=== PATIENT | female | born 1955 | race Caucasian/White ===

== ENCOUNTER 2019-04-02 19:41 | Inpatient (IN) ==
--- NOTE | 2019-04-02 20:21 | Emergency Department Note ---
Disposition Clinical Impression: Cellulitis of right breast, Abscess of right breast Disposition: Admitted As Inpatient Referrals: NONE,PCP [Primary Care Provider] - Forms: ED Satisfaction Letter, Work/School Release Time of Disposition: 22:58 General Adult HPI - General Chief complaint: ED General Medical Stated complaint: R Breast Swollen/Hot, HX Time Seen by Provider: 04/02/19 20:16 Source: patient Mode of arrival: private vehicle Limitations: no limitations Nursing Notes Reviewed: Yes Vital Signs Reviewed: Yes - History of Present Illness HPI Narrative: Patient is a 63-year-old female with a past medical history including asthma, migraine history, 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 The patient states she woke up today with right breast swelling, redness, pain. She states that started initially in the upper breast and has been progressively getting bigger. She complains of chills. She denies any nausea or vomiting, abdominal pain, chest pain, shortness of breath, cough, diarrhea, dysuria, headache. She is concerned she has an infection. Denies any nipple drainage. Pain Scale: 3 - Related Data Home Medications Medication Instructions Recorded Confirmed Cetirizine HCl [Zyrtec] 5 mg PO DAILY 06/21/18 04/02/19 Cyclobenzaprine HCl 10 mg PO TID PRN 06/21/18 04/02/19 EPINEPHrine [Epipen] 1 pack SQ PRN PRN 06/21/18 04/02/19 Fluticasone Propionate Nasal 50 mcg NS BID 06/21/18 04/02/19 [Flonase] hydroCHLOROthiazide 25 mg PO DAILY 06/21/18 04/02/19 [Hydrochlorothiazide] Montelukast [Singulair] 10 mg PO HS 11/04/18 04/02/19 SUMAtriptan Succinate [Imitrex] 6 mg SQ PRN PRN 11/04/18 04/02/19 SUMAtriptan Succinate [Imitrex] 100 mg PO PRN PRN 11/04/18 04/02/19 Fluticasone/Vilanterol [Breo 1 puff PO DAILY 11/22/18 04/02/19 Ellipta 100-25 Mcg INH] Multivitamin [Daily Multiple 1 tab PO DAILY 11/22/18 04/02/19 Vitamin] Calcium/D3/Argnin/Inos/Silicon 1 each PO DAILY 12/20/18 04/02/19 [Bone Density Calcium + D Cplt] Previous Rx's Medication Instructions Recorded Anastrozole [Arimidex] 1 mg PO DAILY #30 tablet 01/27/19 Calcium Carbonate/Vitamin D3 1 each PO DAILY #30 tablet 01/27/19 [Calcium 1,000 + D3 Caplet] Allergies Allergy/AdvReac Type Severity Reaction Status Date / Time azithromycin AdvReac Swelling Verified 04/02/19 19:47 of Lip/Tongue/Throat bacitracin AdvReac Itching Verified 04/02/19 19:47 ciprofloxacin [From Cipro] AdvReac Swelling Verified 04/02/19 19:47 of Lip/Tongue/Throat levofloxacin [From Levaquin] AdvReac Swelling Verified 04/02/19 19:47 of Lip/Tongue/Throat oxytetracycline AdvReac Swelling Verified 04/02/19 19:47 [From Terramycin] of Lip/Tongue/Throat Penicillins AdvReac Swelling Verified 04/02/19 19:47 of Lip/Tongue/Throat All systems ED: reviewed and negative except as stated. Review of Systems: As Per HPI Constitutional: Reports: chills. Denies: fever Cardiovascular: Denies: chest pain, palpitations Respiratory: Denies: cough, dyspnea Gastrointestinal: Denies: abdominal pain, nausea, vomiting Genitourinary: Denies: dysuria Neurological: Denies: headache Past Medical History - Past Medical History Attestation: Yes The following information was validated with the patient. Source: patient Medical history: Reports: asthma, GERD, migraine, other Surgical history: Reports: hysterectomy Psychiatric history: Reports: no psych history - Social History Smoking Status: Never smoker Smokeless Tobacco Status: No Alcohol use: Reports: none Drug use: Reports: none Physical Exam - General Limitations: no limitations General appearance: alert, in no apparent distress - Head Head exam: atraumatic, normocephalic - Eye Eye exam: Present: normal appearance, EOMI - ENT ENT exam: normal exam, normal oropharynx - Neck Neck exam: Present: normal inspection, trachea midline - Chest Chest inspection: Present: symmetric chest wall rise, other (Between 1 and 2:00 of the right wrist, there is a tender and indurated area measuring approximately 2" x 1" with overlying erythema that is blanching, skin is hot to touch) - Respiratory Respiratory exam: Present: normal lung sounds bilaterally. Absent: respiratory distress, wheezes - Cardiovascular Cardiovascular exam: Present: regular rate, normal rhythm, normal heart sounds - Abdominal Exam Abdominal exam: Present: soft, Non-Tender. Absent: distention - Extremities Exam Extremities exam: Present: normal inspection, normal capillary refill. Absent: calf tenderness - Neurological Exam Neurological exam: Present: alert, oriented X3 - Skin Skin exam: Absent: diaphoresis, pallor Course Vital Signs Temperature 99.8 F H 04/02/19 19:42 Pulse Rate 99 04/02/19 19:42 Respiratory Rate 20 04/02/19 19:42 Blood Pressure 165/84 04/02/19 19:42 O2 Sat by Pulse Oximetry 97 04/02/19 19:42 Temperature 100.1 F H 04/02/19 22:13 Pulse Rate 102 04/02/19 22:13 Respiratory Rate 20 04/02/19 22:13 Blood Pressure 161/89 04/02/19 22:13 O2 Sat by Pulse Oximetry 100 04/02/19 22:13 Oxygen Delivery Oxygen Delivery Room Air Medical Decision Making - [facility] Narrative Medical decision making narrative: Patient was history of breast cancer, completed radiation therapy, has had a lumpectomy and lymph node dissection in December. There is concern of induration overlying erythema with possible cellulitis. We will obtain a CT chest with IV contrast to evaluate for other soft tissue infection and underlying abscess. We will obtain CBC, BMP, lactate and blood cultures. 21:45 Labs reviewed. Normal WBC and lactate. 22:25 CT results reviewed. Right breast 2.8x3.7x3.2 cm collection with adjacent inflammatory changes concerning for abscess, as well as postoperative hematoma seroma that is considered. Vancomycin and cefepime ordered. General surgery has been paged. Patient did have her operation here by Dr. Diaz. 22:[address] Suazo, surgery, who will evaluate the patient in the morning. May be more likely a seroma given her history of radiation. Hospitalist paged for admission. 22:55 Dr. Mcgarry, hospitalist, accepts admission - Medical Records Medical records reviewed: Yes I reviewed the patient's medical records. - Lab Data Lab results reviewed: Yes I reviewed the patient's lab results. Result diagrams: 04/02/19 20:55 04/02/19 20:55 Lab Results 04/02/19 04/02/19 04/02/19 Range/Units 20:55 20:55 20:55 WBC 8.6 (4.3-11.1) K/mcL RBC 4.43 (3.82-4.97) M/mcL Hgb 13.5 (11.5-15.4) g/dL Hct 40.0 (35.3-44.9) % MCV 90.3 (83.0-100.0) fL MCH 30.5 (28.0-33.3) pg MCHC 33.8 (31.6-35.5) g/dL RDW 12.7 (11.5-14.5) % Plt Count 303 (140-400) K/mcL MPV 8.6 L (9.4-12.4) fL Immature Gran % 0.2 (0-4) % Seg Neutrophils % 73.9 % Lymphocytes % 15.8 % Monocytes % 8.4 % Eosinophils % 1.3 % Basophils % 0.4 % Neutrophils # 6.3 (1.6-8.9) K/mcL Lymphocytes # 1.4 (0.6-4.6) K/mcL Monocytes # 0.7 (0.0-1.3) K/mcL Eosinophils # 0.1 (0.0-0.6) K/mcL Basophils # 0.0 (0.0-0.2) K/mcL Sodium 137 (136-145) mEq/L Potassium 3.6 (3.5-5.1) mEq/L Chloride 100 (98-107) mEq/L Carbon Dioxide 28 (23-29) mEq/L BUN 17 (8-23) mg/dL Creatinine 0.77 (0.60-1.20) mg/dL Est GFR ( Amer) > 60 (> 60) Est GFR (Non-Af Amer) > 60 (> 60) BUN/Creatinine Ratio 22 (6-26) Glucose 145 H (70-105) mg/dL Calculated Osmolality 288 (280-300) Lactic Acid 1.0 (0.5-2.2) mmol/L Calcium 9.4 (8.6-10.3) mg/dL - Radiology Data Radiology results reviewed: Yes I reviewed the patient's radiology results. Chest CT 04/02/19 20:39 IMPRESSION: Right breast 2.8 x 3.7 x 3.2 cm low-density collection with enhancing rim in adjacent inflammatory changes concerning for abscess. Postoperative hematoma/seroma is considered less likely given the inflammatory changes. Fatty infiltration of the liver. D/ / Kathi De La Garza Cha, MD / Kathi De La Garza Cha, MD Interpreting Provider: Kathi De La Garza Cha, MD
[2019-04-02] MEDS ORDERED: Isovue-370 500 ML BOTTLE IVP ONE (20:39)
--- NOTE | 2019-04-02 20:52 | Emergency Department Note ---
Disposition Clinical Impression: Cellulitis of right breast, Abscess of right breast Disposition: Admitted As Inpatient Time of Disposition: 22:58 General Adult HPI - General Chief complaint: ED General Medical Stated complaint: R Breast Swollen/Hot, HX Time Seen by Provider: 04/02/19 20:16 Source: patient Mode of arrival: private vehicle Limitations: no limitations - History of Present Illness Pain Scale: 3 - Related Data Home Medications Medication Instructions Recorded Confirmed Cetirizine HCl [Zyrtec] 5 mg PO DAILY 06/21/18 04/02/19 Cyclobenzaprine HCl 10 mg PO TID PRN 06/21/18 04/02/19 EPINEPHrine [Epipen] 1 pack SQ PRN PRN 06/21/18 04/02/19 Fluticasone Propionate Nasal 50 mcg NS BID 06/21/18 04/02/19 [Flonase] hydroCHLOROthiazide 25 mg PO DAILY 06/21/18 04/02/19 [Hydrochlorothiazide] Montelukast [Singulair] 10 mg PO HS 11/04/18 04/02/19 SUMAtriptan Succinate [Imitrex] 6 mg SQ PRN PRN 11/04/18 04/02/19 SUMAtriptan Succinate [Imitrex] 100 mg PO PRN PRN 11/04/18 04/02/19 Fluticasone/Vilanterol [Breo 1 puff PO DAILY 11/22/18 04/02/19 Ellipta 100-25 Mcg INH] Multivitamin [Daily Multiple 1 tab PO DAILY 11/22/18 04/02/19 Vitamin] Calcium/D3/Argnin/Inos/Silicon 1 each PO DAILY 12/20/18 04/02/19 [Bone Density Calcium + D Cplt] Previous Rx's Medication Instructions Recorded Anastrozole [Arimidex] 1 mg PO DAILY #30 tablet 01/27/19 Calcium Carbonate/Vitamin D3 1 each PO DAILY #30 tablet 01/27/19 [Calcium 1,000 + D3 Caplet] Allergies Allergy/AdvReac Type Severity Reaction Status Date / Time azithromycin AdvReac Swelling Verified 04/02/19 19:47 of Lip/Tongue/Throat bacitracin AdvReac Itching Verified 04/02/19 19:47 ciprofloxacin [From Cipro] AdvReac Swelling Verified 04/02/19 19:47 of Lip/Tongue/Throat levofloxacin [From Levaquin] AdvReac Swelling Verified 04/02/19 19:47 of Lip/Tongue/Throat oxytetracycline AdvReac Swelling Verified 04/02/19 19:47 [From Terramycin] of Lip/Tongue/Throat Penicillins AdvReac Swelling Verified 04/02/19 19:47 of Lip/Tongue/Throat Past Medical History - Past Medical History Medical history: Reports: asthma, GERD, migraine, other Surgical history: Reports: hysterectomy Psychiatric history: Reports: no psych history - Social History Smoking Status: Never smoker Smokeless Tobacco Status: No Alcohol use: Reports: none Drug use: Reports: none Physical Exam - General Limitations: no limitations General appearance: alert Course Vital Signs Temperature 99.8 F H 04/02/19 19:42 Pulse Rate 99 04/02/19 19:42 Respiratory Rate 20 04/02/19 19:42 Blood Pressure 165/84 04/02/19 19:42 O2 Sat by Pulse Oximetry 97 04/02/19 19:42 Temperature 98.8 F 04/03/19 12:23 Pulse Rate 87 04/03/19 12:23 Respiratory Rate 20 04/03/19 12:23 Blood Pressure 156/84 04/03/19 12:23 O2 Sat by Pulse Oximetry 95 04/03/19 12:23 Oxygen Delivery Oxygen Delivery Room Air Medical Decision Making - Lab Data Result diagrams: 04/02/19 20:55 04/03/19 03:12 Lab Results 04/02/19 04/02/19 04/02/19 Range/Units 20:55 20:55 20:55 WBC 8.6 (4.3-11.1) K/mcL RBC 4.43 (3.82-4.97) M/mcL Hgb 13.5 (11.5-15.4) g/dL Hct 40.0 (35.3-44.9) % MCV 90.3 (83.0-100.0) fL MCH 30.5 (28.0-33.3) pg MCHC 33.8 (31.6-35.5) g/dL RDW 12.7 (11.5-14.5) % Plt Count 303 (140-400) K/mcL MPV 8.6 L (9.4-12.4) fL Immature Gran % 0.2 (0-4) % Seg Neutrophils % 73.9 % Lymphocytes % 15.8 % Monocytes % 8.4 % Eosinophils % 1.3 % Basophils % 0.4 % Neutrophils # 6.3 (1.6-8.9) K/mcL Lymphocytes # 1.4 (0.6-4.6) K/mcL Monocytes # 0.7 (0.0-1.3) K/mcL Eosinophils # 0.1 (0.0-0.6) K/mcL Basophils # 0.0 (0.0-0.2) K/mcL Sodium 137 (136-145) mEq/L Potassium 3.6 (3.5-5.1) mEq/L Chloride 100 (98-107) mEq/L Carbon Dioxide 28 (23-29) mEq/L BUN 17 (8-23) mg/dL Creatinine 0.77 (0.60-1.20) mg/dL Est GFR ( Amer) > 60 (> 60) Est GFR (Non-Af Amer) > 60 (> 60) BUN/Creatinine Ratio 22 (6-26) Glucose 145 H (70-105) mg/dL Calculated Osmolality 288 (280-300) Lactic Acid 1.0 (0.5-2.2) mmol/L Calcium 9.4 (8.6-10.3) mg/dL Urine Color (Yellow) Urine Clarity (Clear) Urine pH (5.0-8.0) pH Units Ur Specific [place] (1.010-1.025) Urine Protein (Neg-Trace) mg/dL Urine Glucose (UA) (Normal) mg/dL Urine Ketones (Negative) mg/dL Urine Blood (Negative) Urine Nitrite (Negative) Urine Bilirubin (Negative) Urine Urobilinogen (Normal) mg/dL Ur Leukocyte Esterase (Negative) Urine Microscopic RBC (0-3) per hpf Urine Microscopic WBC (0-3) per hpf Ur Squamous Epith Cells (None-Few) per lpf Urine Bacteria (None-Few) per hpf Hyaline Casts (None-Few) per lpf Ur Culture Indicated? (NO) 04/02/19 Range/Units 22:45 WBC (4.3-11.1) K/mcL RBC (3.82-4.97) M/mcL Hgb (11.5-15.4) g/dL Hct (35.3-44.9) % MCV (83.0-100.0) fL MCH (28.0-33.3) pg MCHC (31.6-35.5) g/dL RDW (11.5-14.5) % Plt Count (140-400) K/mcL MPV (9.4-12.4) fL Immature Gran % (0-4) % Seg Neutrophils % % Lymphocytes % % Monocytes % % Eosinophils % % Basophils % % Neutrophils # (1.6-8.9) K/mcL Lymphocytes # (0.6-4.6) K/mcL Monocytes # (0.0-1.3) K/mcL Eosinophils # (0.0-0.6) K/mcL Basophils # (0.0-0.2) K/mcL Sodium (136-145) mEq/L Potassium (3.5-5.1) mEq/L Chloride (98-107) mEq/L Carbon Dioxide (23-29) mEq/L BUN (8-23) mg/dL Creatinine (0.60-1.20) mg/dL Est GFR ( Amer) (> 60) Est GFR (Non-Af Amer) (> 60) BUN/Creatinine Ratio (6-26) Glucose (70-105) mg/dL Calculated Osmolality (280-300) Lactic Acid (0.5-2.2) mmol/L Calcium (8.6-10.3) mg/dL Urine Color Yellow (Yellow) Urine Clarity Clear (Clear) Urine pH 7.0 (5.0-8.0) pH Units Ur Specific [place] 1.011 (1.010-1.025) Urine Protein Negative (Neg-Trace) mg/dL Urine Glucose (UA) Normal (Normal) mg/dL Urine Ketones Negative (Negative) mg/dL Urine Blood Negative (Negative) Urine Nitrite Negative (Negative) Urine Bilirubin Negative (Negative) Urine Urobilinogen Normal (Normal) mg/dL Ur Leukocyte Esterase Moderate H (Negative) Urine Microscopic RBC 0-3 (0-3) per hpf Urine Microscopic WBC 5-15 H (0-3) per hpf Ur Squamous Epith Cells Few (None-Few) per lpf Urine Bacteria None Seen (None-Few) per hpf Hyaline Casts None Seen (None-Few) per lpf Ur Culture Indicated? YES A (NO) Attestation Statement - Attestation Attestation: I examined this patient and my medical decision-making was reviewed with the Resident Physician. I agree with the documented findings, disposition and treatment plan as described except to the extent set forth below. Patient 63-year-old female who presents to the emergency department with chief complaint of right-sided breast pain and swelling. Patient reports that she has a history of lumpectomy and lymph node dissection of the right breast. Patient reports that she noticed last several days her right breast is become significantly more swollen is tender to palpation and has been warm to touch. Physical exam patient is awake alert no acute distress right breast is markedly swollen compared to the left there is a tender firm area at approximately 1 to 2 o'clock position Medical decision management patient will undergo helical imaging of the chest to evaluate for possible abscess. Patient also undergo laboratory testing
[2019-04-02 21:07] LABS: Basophils % 0.4 %; Eosinophils # 0.1 K/mcL (0.0-0.6); Eosinophils % 1.3 %; Hemoglobin 13.5 g/dL (11.5-15.4); Immature Granulocytes % 0.2 % (0-4); Lymphocytes # 1.4 K/mcL (0.6-4.6); Lymphocytes % 15.8 %; Mean Corpuscular HGB Conc 33.8 g/dL (31.6-35.5); Mean Corpuscular Hemoglobin 30.5 pg (28.0-33.3); Mean Corpuscular Volume 90.3 fL (83.0-100.0); Mean Platelet Volume 8.6 fL (9.4-12.4); Monocytes # 0.7 K/mcL (0.0-1.3); Monocytes % 8.4 %; Neutrophils # 6.3 K/mcL (1.6-8.9); Platelet Count 303 K/mcL (140-400); Red Blood Count 4.43 M/mcL (3.82-4.97); Red Cell Distribution Width 12.7 % (11.5-14.5); Segmented Neutrophils % 73.9 %; White Blood Count 8.6 K/mcL (4.3-11.1)
[2019-04-02 21:31] LABS: BUN/Creatinine Ratio 22 (6-26); Blood Urea Nitrogen 17 mg/dL (8-23); Calcium 9.4 mg/dL (8.6-10.3); Carbon Dioxide 28 mEq/L (23-29); Chloride 100 mEq/L (98-107); Glucose 145 mg/dL (70-105); Osmolality,Calculated 288 (280-300); Potassium 3.6 mEq/L (3.5-5.1); Sodium 137 mEq/L (136-145); eGFR For African Americans > 60 (> 60); eGFR For Non-African Americans > 60 (> 60)
[2019-04-02] MEDS ORDERED: Cefepime HCl 1,000 MG in Water for inj. (sterile) 10 ML IVP STA (22:03)
[2019-04-02 23:14] LABS: Bilirubin,Urine Negative (Negative); Blood,Urine Negative (Negative); Clarity,Urine Clear (Clear); Color,Urine Yellow (Yellow); Glucose,Urine (UA) Normal (Normal); Ketones,Urine Negative (Negative); Leukocyte Esterase,Urine Moderate (Negative); Nitrite,Urine Negative (Negative); Protein,Urine Negative (Neg-Trace); Specific Gravity,Urine 1.011 (1.010-1.025); Urobilinogen,Urine Normal (Normal)
[2019-04-02 23:17] LABS: Bacteria,Urine None Seen per hpf (None-Few); Hyaline Casts,Urine None Seen per lpf (None-Few); RBC,Urine 0-3 per hpf (0-3); Squamous Epithelial Cell,Urine Few per lpf (None-Few)
[2019-04-03] MEDS ORDERED: SUMAtriptan succinate 50 MG TABLET PO PRN (00:47)
[2019-04-03] MEDS ORDERED: Acetaminophen 325 MG TABLET PO PRN (00:51)
[2019-04-03] MEDS ORDERED: traMADol 50 MG TABLET PO PRN (00:51)
[2019-04-03] MEDS ORDERED: Ketorolac 30 MG/ML VIAL IVP PRN (01:13)
[2019-04-03] MEDS: Ringers Solution, Lactated 1,000 ML IVC SCH ×2 (01:23→11:24)
--- NOTE | 2019-04-03 02:22 | Internal Med History&Physical ---
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 She also has a history of endometrial cancer status post partial hysterectomy in her 20s. She underwent a lumpectomy in November with negative margins and LNs. She completed adjuvant radiotherapy to the breast on 01/21/19 and is now on adjuvant hormonal therapy. She presented to the ER with complaints of pain, swelling and redness of the right breast that she noticed after waking up in the morning and progressively worsened as the day progressed. She had some chills as well but was not febrile. There was no associated chest pain or vomiting. No trauma to the area. No nipple discharge. Lab work in the ER was grossly within normal limits. CT scan done showed a low density collection with rim enhancement and adjacent inflammatory changes concerning for an abscess. She was started on empiric antibiotics and is admitted for further care. Vitals: Reviewed General: Well-developed well-appearing woman lying comfortably in bed in no acute distress. Skin: Warm and dry. HEENT: Moist mucous membranes. No conjunctivae pallor. Neck: No lymphadenopathy. No JVD. No carotid bruits. No palpable thyroid. Chest: Normal thoracic expansion. Normal breath sounds. Clear to auscultation. Right breast is notably erythematous and purplish in color, blanching with touch and has an underlying firm induration in the right superior medial quadrant that is tender with palpation. No nipple discharge. Heart: Normal S1 & S2; rhythmic. No rubs or murmurs. Abdomen: Non-distended, soft and non-tender to palpation. No peritoneal reaction. Extremities: No clubbing, cyanosis or edema. No calf tenderness. Normal distal pulses. Neurological: Awake, alert and oriented to person, place and time. No focal deficits. Psych: Affect appropriate. Assessment/Plan 1. Right breast abscess: No recent trauma, not lactating. The only antecedents she has are the breast surgery and radiation therapy. Will continue vancomycin/cefepime empirically for now and consult surgery for follow up as she may require incision/drainage. 2. Right breast DCIS: She has completed radiation therapy and no indication for chemotherapy. She will remain on adjuvant hormonal therapy with anastrozole 1mg PO daily with plans to continue treatment for 5 years to prevent recurrence of her breast cancer. 3. Hypertension: On HCTZ. 4. DVT prophylaxis: Antiembolic stockings. Past Med Surg Social Fam HX - Past Medical History Medical history: arthritis, asthma, GERD, migraine, other Additional medical history: RT BREAST CANCER, Psychiatric history: no psych history - Past Surgical History Surgical History: hysterectomy Additional surgical history: RT BREAST LUMPECTOMY, RT ANKLE SURG, - Social History Smoking Status: Never smoker Smokeless Tobacco Status: No Alcohol use: none Drug use: none - Family History Mother Living Status: Age at : 82 Cause of : CHF Father Living Status: Age at : 49 Cause of : stroke Internal Medicine - H&P: Meds Cetirizine HCl [Zyrtec] 5 mg PO DAILY 06/21/18 [History] Cyclobenzaprine HCl 10 mg PO TID PRN 06/21/18 [History] EPINEPHrine [Epipen] 1 pack SQ PRN PRN 06/21/18 [History] Fluticasone Propionate Nasal [Flonase] 50 mcg NS BID 06/21/18 [History] hydroCHLOROthiazide [Hydrochlorothiazide] 25 mg PO DAILY 06/21/18 [History] Montelukast [Singulair] 10 mg PO HS 11/04/18 [History] SUMAtriptan Succinate [Imitrex] 6 mg SQ PRN PRN 11/04/18 [History] SUMAtriptan Succinate [Imitrex] 100 mg PO PRN PRN 11/04/18 [History] Fluticasone/Vilanterol [Breo Ellipta 100-25 Mcg INH] 1 puff PO DAILY 11/22/18 [History] Multivitamin [Daily Multiple Vitamin] 1 tab PO DAILY 11/22/18 [History] Calcium/D3/Argnin/Inos/Silicon [Bone Density Calcium + D Cplt] 1 each PO DAILY 12/20/18 [History] Anastrozole [Arimidex] 1 mg PO DAILY #30 tablet 01/27/19 [Rx] Calcium Carbonate/Vitamin D3 [Calcium 1,000 + D3 Caplet] 1 each PO DAILY #30 tablet 01/27/19 [Rx] Allergy/AdvReac Type Severity Reaction Status Date / Time azithromycin AdvReac Swelling Verified 04/02/19 19:47 of Lip/Tongue/Throat bacitracin AdvReac Itching Verified 04/02/19 19:47 ciprofloxacin [From Cipro] AdvReac Swelling Verified 04/02/19 19:47 of Lip/Tongue/Throat levofloxacin [From Levaquin] AdvReac Swelling Verified 04/02/19 19:47 of Lip/Tongue/Throat oxytetracycline AdvReac Swelling Verified 04/02/19 19:47 [From Terramycin] of Lip/Tongue/Throat Penicillins AdvReac Swelling Verified 04/02/19 19:47 of Lip/Tongue/Throat All Systems PM: A 10-system review of systems was performed and is negative for pertinent findings except as documented above in the HPI. - Constitutional Vitals: Temp Pulse Resp BP Pulse Ox 98.7 F 104 16 146/82 96 04/02/19 23:50 04/02/19 23:50 04/02/19 23:50 04/02/19 23:50 04/02/19 23:50 Exam: . Internal Med - H&P Results - Labs CBC & Chem 7: 04/02/19 20:55 04/02/19 20:55 Labs: Short CBC 04/02/19 Range/Units 20:55 WBC 8.6 (4.3-11.1) K/mcL Hgb 13.5 (11.5-15.4) g/dL Hct 40.0 (35.3-44.9) % Plt Count 303 (140-400) K/mcL Neutrophils # 6.3 (1.6-8.9) K/mcL BMP 04/02/19 20:55 Sodium 137 Potassium 3.6 Chloride 100 Carbon Dioxide 28 BUN 17 Creatinine 0.77 Glucose 145 H Calcium 9.4 Urine 04/02/19 Range/Units 22:45 Urine Color Yellow (Yellow) Urine Clarity Clear (Clear) Urine pH 7.0 (5.0-8.0) pH Units Ur Specific [place] 1.011 (1.010-1.025) Urine Protein Negative (Neg-Trace) mg/dL Urine Glucose (UA) Normal (Normal) mg/dL - Impressions ITS Impressions Chest CT 04/02/19 20:39 IMPRESSION: Right breast 2.8 x 3.7 x 3.2 cm low-density collection with enhancing rim in adjacent inflammatory changes concerning for abscess. Postoperative hematoma/seroma is considered less likely given the inflammatory changes. Fatty infiltration of the liver. D/ / Kathi De La Garza Cha, MD / Kathi De La Garza Cha, MD Interpreting Provider: Kathi De La Garza Cha, MD - Time Spent With Patient Total time spent is greater than 50% in coordination of care (as documented) at patient's floor/unit and/or counseling patient:
[2019-04-03 04:13] LABS: INR 1.1; Prothrombin Time 12.5 Seconds (9.4-12.1)
[2019-04-03 04:16] LABS: Activated Partial Thrombo Time 30.6 Seconds (26.0-36.0)
[2019-04-03] MEDS ORDERED: Cefepime HCl 2,000 MG in 0.9 % Sodium Chloride Mini Bag 100 ML IVPB SCH (06:00)
--- NOTE | 2019-04-03 07:59 | AcuteCare Surgery Consult Note ---
Date of Encounter: 04/03/19 Time of Encounter: 07:30 Assessment and Plan (1) Abscess of right breast Current Visit: Yes Status: Acute The differential diagnosis of the right breast collection is seroma, hematoma, or abscess. We will arrange for breast aspiration today. History of Present Illness Consult date: 04/03/19 Reason for consult: other (Breast erythema and pain) History of present illness: The patient is a 63-year-old female who underwent lumpectomy and sentinel lymph node biopsy in November of this year. 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 The patient had negative sentinel lymph nodes. The patient underwent radiation therapy and completed therapy in January of this year. She did report some breast erythema with radiation therapy but this quickly resolved the patient noted thickening underneath her surgical scar after the radiation therapy. Over the last several days she has had progressive hill st swelling and erythema. On physical examination she has a palpable fluid collection in the previous lumpectomy site. CAT scan of the chest was ordered. I personally reviewed the CAT scan of the chest. She does have a fluid collection in the surgical site. The differential diagnosis is seroma, hematoma, and abscess. We will arrange for interventional radiology to perform right breast aspiration. Further therapy will be based on aspiration findings. Past Med Surg Social Fam HX - Past Medical History Medical history: arthritis, asthma, GERD, migraine, other Additional medical history: RT BREAST CANCER, Psychiatric history: no psych history - Past Surgical History Surgical History: hysterectomy Additional surgical history: RT BREAST LUMPECTOMY, RT ANKLE SURG, - Social History Smoking Status: Never smoker Smokeless Tobacco Status: No Alcohol use: none Drug use: none - Family History Mother Living Status: Age at : 82 Cause of : CHF Father Living Status: Age at : 49 Cause of : stroke Medications and Allergies Cetirizine HCl [Zyrtec] 5 mg PO DAILY 06/21/18 [History] Cyclobenzaprine HCl 10 mg PO TID PRN 06/21/18 [History] EPINEPHrine [Epipen] 1 pack SQ PRN PRN 06/21/18 [History] Fluticasone Propionate Nasal [Flonase] 50 mcg NS BID 06/21/18 [History] hydroCHLOROthiazide [Hydrochlorothiazide] 25 mg PO DAILY 06/21/18 [History] Montelukast [Singulair] 10 mg PO HS 11/04/18 [History] SUMAtriptan Succinate [Imitrex] 6 mg SQ PRN PRN 11/04/18 [History] SUMAtriptan Succinate [Imitrex] 100 mg PO PRN PRN 11/04/18 [History] Fluticasone/Vilanterol [Breo Ellipta 100-25 Mcg INH] 1 puff PO DAILY 11/22/18 [History] Multivitamin [Daily Multiple Vitamin] 1 tab PO DAILY 11/22/18 [History] Calcium/D3/Argnin/Inos/Silicon [Bone Density Calcium + D Cplt] 1 each PO DAILY 12/20/18 [History] Anastrozole [Arimidex] 1 mg PO DAILY #30 tablet 01/27/19 [Rx] Calcium Carbonate/Vitamin D3 [Calcium 1,000 + D3 Caplet] 1 each PO DAILY #30 tablet 01/27/19 [Rx] Allergy/AdvReac Type Severity Reaction Status Date / Time azithromycin AdvReac Swelling Verified 04/02/19 19:47 of Lip/Tongue/Throat bacitracin AdvReac Itching Verified 04/02/19 19:47 ciprofloxacin [From Cipro] AdvReac Swelling Verified 04/02/19 19:47 of Lip/Tongue/Throat levofloxacin [From Levaquin] AdvReac Swelling Verified 04/02/19 19:47 of Lip/Tongue/Throat oxytetracycline AdvReac Swelling Verified 04/02/19 19:47 [From Terramycin] of Lip/Tongue/Throat Penicillins AdvReac Swelling Verified 04/02/19 19:47 of Lip/Tongue/Throat Review of Systems All systems PM: The remainder of the systems were reviewed and are negative General Surgery Exam Initial Vital Signs Temp Pulse Resp BP Pulse Ox 99.8 F H 99 20 165/84 97 04/02/19 19:42 04/02/19 19:42 04/02/19 19:42 04/02/19 19:42 04/02/19 19:42 - General physical appearance well developed, well nourished, moderate distress, moderate pain - Neck no masses, no bruits, trachea midline, no lymphadectomy, no venous distension - Respiratory normal expansion, normal respiratory effort, clear to auscultation - Cardiovascular Cardiovascular exam: Present: RRR, no murmurs/rubs/gallops - Abdomen Abdomen general surgery: Present: bowel sounds present, soft, non tender - Incision Incision: Present: red, swollen (The right breast is examined. Previous lumpectomy incision is healed. Axillary incision is healed. The breast is erythematous. There is a palpable fluid collection at the previous surgical site. I would estimate a 5 cm fluid collection) - Neurologic Present: CN 2-12 grossly intact, normal coordination, normal sensation - Psychiatric Psychiatric general surgery: Present: appropriate, oriented to person, oriented to place, oriented to time, speech is normal, memory intact Exam Initial Vital Signs Temp Pulse Resp BP Pulse Ox 99.8 F H 99 20 165/84 97 04/02/19 19:42 04/02/19 19:42 04/02/19 19:42 04/02/19 19:42 04/02/19 19:42 Results - Labs 04/02/19 20:55 04/02/19 20:55 Abnormal lab results MPV 8.6 fL (9.4-12.4) L 04/02/19 20:55 PT 12.5 Seconds (9.4-12.1) H 04/03/19 03:12 Glucose 145 mg/dL (70-105) H 04/02/19 20:55 Ur Leukocyte Esterase Moderate (Negative) H 04/02/19 22:45 Urine Microscopic WBC 5-15 per hpf (0-3) H 04/02/19 22:45 Ur Culture Indicated? YES (NO) A 04/02/19 22:45 Diabetes panel 04/02/19 Range/Units 20:55 Sodium 137 (136-145) mEq/L Potassium 3.6 (3.5-5.1) mEq/L Chloride 100 (98-107) mEq/L Carbon Dioxide 28 (23-29) mEq/L BUN 17 (8-23) mg/dL Creatinine 0.77 (0.60-1.20) mg/dL Glucose 145 H (70-105) mg/dL Calcium 9.4 (8.6-10.3) mg/dL Calcium panel 04/02/19 Range/Units 20:55 Calcium 9.4 (8.6-10.3) mg/dL Pituitary panel 04/02/19 Range/Units 20:55 Sodium 137 (136-145) mEq/L Potassium 3.6 (3.5-5.1) mEq/L Chloride 100 (98-107) mEq/L Carbon Dioxide 28 (23-29) mEq/L BUN 17 (8-23) mg/dL Creatinine 0.77 (0.60-1.20) mg/dL Glucose 145 H (70-105) mg/dL Calcium 9.4 (8.6-10.3) mg/dL Adrenal panel 04/02/19 Range/Units 20:55 Sodium 137 (136-145) mEq/L Potassium 3.6 (3.5-5.1) mEq/L Chloride 100 (98-107) mEq/L Carbon Dioxide 28 (23-29) mEq/L BUN 17 (8-23) mg/dL Creatinine 0.77 (0.60-1.20) mg/dL Glucose 145 H (70-105) mg/dL Calcium 9.4 (8.6-10.3) mg/dL All other labs normal. - Imaging CT scan - chest: image reviewed (I personally reviewed the CAT scan of the chest. The patient does have a fluid collection at the previous lumpectomy site. The remainder the breast demonstrates recent radiation changes) Consult Discharge Plan - Plan Referrals: NONE,PCP [Primary Care Provider] -
[2019-04-03] MEDS ORDERED: Loratadine 10 MG TABLET PO SCH (09:00)
[2019-04-03] MEDS ORDERED: Anastrozole 1 MG TABLET PO SCH (09:00)
[2019-04-03] MEDS ORDERED: (Breo Ellipta 100-25 Mcg Inh) PO SCH (09:00)
[2019-04-03] MEDS ORDERED: [UNRECOGNIZED DRUG - MIXTURE] PO SCH (09:00)
[2019-04-03] MEDS ORDERED: hydroCHLOROthiazide 25 MG TABLET PO SCH (09:00)
[2019-04-03] MEDS ORDERED: Multivit/Ca/Min/Fe/FA 1 TAB TABLET PO SCH (09:00)
[2019-04-03] MEDS ORDERED: Fluticasone Propionate Nasal 50 MCG/SPRAY BOTTLE NS SCH (09:00)
[2019-04-03 12:24] VITALS: BP 156/84
[2019-04-03 12:51] LABS: BUN/Creatinine Ratio 20 (6-26); Blood Urea Nitrogen 14 mg/dL (8-23); eGFR For African Americans > 60 (> 60); eGFR For Non-African Americans > 60 (> 60)
--- NOTE | 2019-04-03 12:53 | Discharge Summary ---
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 Kaufman is a 63 year old female - Time Spent with Patient Total time spent providing and/or coordinating discharge services: - Discharge Medications Prescriptions: Continued Fluticasone Propionate Nasal [Flonase] 50 mcg NS BID Cetirizine HCl [Zyrtec] 5 mg PO DAILY hydroCHLOROthiazide [Hydrochlorothiazide] 25 mg PO DAILY Cyclobenzaprine HCl 10 mg PO TID PRN PRN Reason: Muscle Spasm EPINEPHrine [Epipen] 1 pack SQ PRN PRN PRN Reason: Anaphylaxis SUMAtriptan Succinate [Imitrex] 6 mg SQ PRN PRN PRN Reason: Migraine Headache Montelukast [Singulair] 10 mg PO HS SUMAtriptan Succinate [Imitrex] 100 mg PO PRN PRN PRN Reason: Migraine Headache Fluticasone/Vilanterol [Breo Ellipta 100-25 Mcg INH] 1 puff PO DAILY Multivitamin [Daily Multiple Vitamin] 1 tab PO DAILY Calcium/D3/Argnin/Inos/Silicon [Bone Density Calcium + D Cplt] 1 each PO DAILY Calcium Carbonate/Vitamin D3 [Calcium 1,000 + D3 Caplet] 1 each PO DAILY #30 tablet Anastrozole [Arimidex] 1 mg PO DAILY #30 tablet Home Medications: Cetirizine HCl [Zyrtec] 5 mg PO DAILY 06/21/18 [History] Cyclobenzaprine HCl 10 mg PO TID PRN 06/21/18 [History] EPINEPHrine [Epipen] 1 pack SQ PRN PRN 06/21/18 [History] Fluticasone Propionate Nasal [Flonase] 50 mcg NS BID 06/21/18 [History] hydroCHLOROthiazide [Hydrochlorothiazide] 25 mg PO DAILY 06/21/18 [History] Montelukast [Singulair] 10 mg PO HS 11/04/18 [History] SUMAtriptan Succinate [Imitrex] 6 mg SQ PRN PRN 11/04/18 [History] SUMAtriptan Succinate [Imitrex] 100 mg PO PRN PRN 11/04/18 [History] Fluticasone/Vilanterol [Breo Ellipta 100-25 Mcg INH] 1 puff PO DAILY 11/22/18 [History] Multivitamin [Daily Multiple Vitamin] 1 tab PO DAILY 11/22/18 [History] Calcium/D3/Argnin/Inos/Silicon [Bone Density Calcium + D Cplt] 1 each PO DAILY 12/20/18 [History] Anastrozole [Arimidex] 1 mg PO DAILY #30 tablet 01/27/19 [Rx] Calcium Carbonate/Vitamin D3 [Calcium 1,000 + D3 Caplet] 1 each PO DAILY #30 tablet 01/27/19 [Rx] Allergies/Adverse Reactions: Allergy/AdvReac Type Severity Reaction Status Date / Time azithromycin AdvReac Swelling Verified 04/02/19 19:47 of Lip/Tongue/Throat bacitracin AdvReac Itching Verified 04/02/19 19:47 ciprofloxacin [From Cipro] AdvReac Swelling Verified 04/02/19 19:47 of Lip/Tongue/Throat levofloxacin [From Levaquin] AdvReac Swelling Verified 04/02/19 19:47 of Lip/Tongue/Throat oxytetracycline AdvReac Swelling Verified 04/02/19 19:47 [From Terramycin] of Lip/Tongue/Throat Penicillins AdvReac Swelling Verified 04/02/19 19:47 of Lip/Tongue/Throat Date of admission: 04/03/19 00:50 Primary care physician: PCP NONE Consults: 04/02/19 22:35 Consult to Surgery [CONS] Stat Consulting Provider: Acute Care Surgery Reason for Consult: right breast abscess versus seroma h/o breast cancer Call Completed: Yes 04/03/19 08:03 Consult to Interventional Radiology [CONS] Stat Consulting Provider: Radiology Interventional Cols Reason for Consult: Right breast fluid collection Time Notified: 08:05 Call Completed: Yes - Constitutional Vitals: Temp Pulse Resp BP Pulse Ox 98.8 F 87 20 156/84 95 04/03/19 12:23 04/03/19 12:23 04/03/19 12:23 04/03/19 12:23 04/03/19 12:23 - Patient Status Disposition: Home, Self-Care Condition: Good - Discharge Instructions Instructions: Cellulitis (DC) Follow Up With: Mat Johnston MD [Partnered Physician] - 04/16/19 4:15 am (You will be seeing Dr. Cancino at this appointment.) NONE,PCP [Primary Care Provider] - - Attending Attestation I examined this patient and my medical decision-making was reviewed with the Resident Physician on 04/03/19. I agree with the documented findings, disposition and treatment plan as described except to the extent set forth below. Ms Kaufman has been admitted for concern for abscess in her breast. She was started on IV abx. Area was aspirated and appears to be seroma. Pain improved after aspiration. She is afebrile and will be discharged home. Exam: Alert. Comfortable. EOMI. Mucus membranes dry. NC. Neck supple. Not tachycardic. Lungs clear. Abd soft. No edema Plan: D/C home today. D/C time 27min Pt was seen face to face and encounter was greater than 8 hours since admit time. <Zach Krishnamurthy M - Last Filed: 04/03/19 18:07> - NOTES TO OUTPATIENT PROVIDER Notes to Outpatient Provider: Mrs. Kaufman was seen at the ER on 04/02/19 for 2-3 days of increasing right breast pain and swelling. Worked up for possible cellulitis/abcess. Admitted to the hospitalist service and treated with IV Abx. CT demonstrated fluid collection, possible abcess, seroma, hematoma. Surgery consulted. Needle aspiration perfomed by IR, lymphatic fluid, non-infectious. Abx were d/c and patient was discharged. PCP routine f/u at this time. Surgical f/u for fluid collection. Orders not resulted at time of discharge: Pending orders 04/02/19 20:55 Culture,Blood [BC] Stat 04/02/19 22:45 Culture,Urine [RM] Stat Date of Encounter: 04/03/19 Time of Encounter: 09:00 - Discharge Diagnosis (1) Seroma of breast Status: Suspected Assessment and Plan: Patient evaluated with CT on 04/02/19 which demonstrated 2.8 x 3.2 cm fluid collection. Possible abscess, hematoma, or seroma. Blood, urine cultures were taken. Pt started on cefepime and vancomycin. IR confirmed fluid collection was lymphatic in etiology. - Abx discontinued, pt advised to follow-up with surgery. - PRN NSAIDS for pain. - Return to ER if persistent fever, chills, pain develop. (2) Ductal carcinoma in situ (DCIS) of right breast Status: Chronic Assessment and Plan: Breast changes are unlikely to be worsening of DCIS. Likely seroma from surgical history. - Pt advised to f/u with op oncology/surgery for continued management. Hospital course: Ms. Kaufman is a 63 year old female PMHx of lumpectomy, LNB in November of this year. Pathology demonstrated DCIS. Patient underwent radiation therapy in January of this year. Reported progressive right breast pain, swelling, erythema over the past 2-3 days. Was seen in the ER on 04/02/19 for evaluation. There was significant concern of infection. Urine/blood cultures were obtained, started on IV cefepime and vancomycin and admitted for further evaluation. Surgery was consulted, reccommened needle aspiration by IR. Aspiration determined to be lymphatic fluid, non-infectious etiology. Abx were discontinued and patient was advised of the findings. Discharge discussed with: patient, family, nurse - Time Spent with Patient Total time spent providing and/or coordinating discharge services: Time spent: Greater than 30 minutes Date of admission: 04/03/19 00:50 Primary care physician: PCP NONE Consults: 04/02/19 22:35 Consult to Surgery [CONS] Stat Consulting Provider: Acute Care Surgery Reason for Consult: right breast abscess versus seroma h/o breast cancer Call Completed: Yes 04/03/19 08:03 Consult to Interventional Radiology [CONS] Stat Consulting Provider: Radiology Interventional Cols Reason for Consult: Right breast fluid collection Time Notified: 08:05 Call Completed: Yes Discharging clinician: Zach Krishnamurthy Anticipated date of discharge: 04/03/19 - Constitutional Vitals: Temp Pulse Resp BP Pulse Ox 98.8 F 87 20 156/84 95 04/03/19 12:23 04/03/19 12:23 04/03/19 12:23 04/03/19 12:23 04/03/19 12:23 General appearance: Present: A&O X 3, pleasant, no acute distress Exam: see below - Head Head exam: Present: atraumatic, normocephalic - ENT ENT exam: Present: mucous membranes moist - Respiratory Respiratory exam: Present: CTAB. Absent: chest wall tenderness, rales, respiratory distress, rhonchi, wheezes, tachypnea - Cardiovascular Cardiovascular exam: Present: RRR, +S1, +S2. Absent: diastolic murmur, gallop, JVD, rubs, systolic murmur - GI/Abdominal GI/Abdominal exam: Present: normal bowel sounds, soft, no peritoneal signs. Absent: hepatomegaly, rigid, tenderness - Extremities Exam Extremities exam: Present: radial pulses palpable and symmetrical. Absent: cyanotic, joint swelling, pedal edema, tenderness - Neurological Exam Neurological exam: Present: alert, CN II-XII intact, oriented X3, no focal deficits - Skin Additional comments: Right breast: lumpectomy incision healed, edema and erythema of breast with palpable, 3-5 cm, mildly tender fluid collection. - Patient Status Functional capacity at discharge: independent ambulation Overall status at discharge: patient is back to baseline - Diet and Activity Activity: increase activity as tolerated Diet: advance to your usual diet
--- NOTE | 2019-04-03 14:02 | Acute Care Surgery Event Note ---
Date of Encounter: 04/03/19 Time of Encounter: 12:00 I discussed the findings from the breast aspiration with the radiologist. Clear straw-colored fluid was identified. This is more than likely a seroma. There is no evidence of pus or abscess. The fluid is sent for culture. The wound does not need to be opened or packed. If the fluid recurs a repeat aspiration can be performed. Seromas can be painful. This does not account for the discoloration of her breast. The discoloration may be from late radiation effect to the skin. The patient is afebrile and has a normal white blood cell count. In my opinion this does not represent abscess and cellulitis
[2019-04-03] MEDS ORDERED: Aminoglycoside Consult 1 EACH MC ONE (15:21)
== END 2019-04-03 15:22 | disposition home or self-care (01) | DRG 921 ==
LOC: EMEROOARM 19:41 → 3BNU 19:41 → SUATTDRO 04-03 00:50
PROVIDERS: ADMIT Internal Medicine; ATTEND Internal Medicine

== ENCOUNTER 2019-04-05 12:30 | Observation (INO) ==
--- NOTE | 2019-04-05 14:16 | Emergency Department Note ---
Disposition Clinical Impression: Cellulitis of right breast Disposition: Admitted As Inpatient Condition: Good Time of Disposition: 16:50 Skin/Abscess/FB HPI Chief complaint: ED Skin/Abscess/Foreign Body Stated complaint: Needs antibotic Time Seen by Provider: 04/05/19 13:52 Source: patient, family Mode of arrival: private vehicle Limitations: no limitations Nursing Notes Reviewed: Yes Vital Signs Reviewed: Yes HPI Narrative: Patient presents from home with her for evaluation of a new red area on the lateral aspect of her breast. She also feels as though she may have a new fluid collection in the breast in the same area that she recently had aspirated. She is currently under surveillance for/possible remission of breast cancer, status post lumpectomy. She developed a fluid collection and pain on the . She was seen in the ER and admitted. She had the fluid collection aspirated and sent to pathology. Findings per the radiologist and surgeon were consistent with seroma; noninfectious. The antibiotics were discontinued and patient was not given a prescription to go home with. She was confused because she had been told by several providers that she would need to take an antibiotic. She called her nurse navigator and also called the nurse on the floor where she was recently discharged from. No one was able to tell her definitively if she needed an antibiotic or not. So she came to the ER. The other reason for her visit is this new red, warm area on the lateral aspect of the breast. It was not present three days ago. She denies fever, chills, nausea, vomiting, malaise, chest pain, shortness of breath, cough, hemoptysis, dyspnea on exertion, leg pain or swelling. Pt Subjective Complaint: discoloration (new area of redness and increased warmth on side of breast) Onset (ago): day(s) Tetanus Up to Date: yes Location: chest (Right breast) Severity: mild Quality: dull, other (Pressure) Consistency: constant Improves with: none Worsens with: none Context: other Associated symptoms: Denies: fever, chills, rigors, itching, nausea, vomiting, malaise, arthralgias, myalgias, cough, shortness of breath Treatments prior to arrival: other Home Medications Medication Instructions Recorded Confirmed Cetirizine HCl [Zyrtec] 5 mg PO DAILY 06/21/18 04/05/19 Cyclobenzaprine HCl 10 mg PO TID PRN 06/21/18 04/05/19 EPINEPHrine [Epipen] 1 pack SQ PRN PRN 06/21/18 04/05/19 Fluticasone Propionate Nasal 50 mcg NS BID 06/21/18 04/05/19 [Flonase] hydroCHLOROthiazide 25 mg PO DAILY 06/21/18 04/05/19 [Hydrochlorothiazide] Montelukast [Singulair] 10 mg PO HS 11/04/18 04/05/19 SUMAtriptan Succinate [Imitrex] 6 mg SQ PRN PRN 11/04/18 04/05/19 SUMAtriptan Succinate [Imitrex] 100 mg PO PRN PRN 11/04/18 04/05/19 Fluticasone/Vilanterol [Breo 1 puff PO DAILY 11/22/18 04/05/19 Ellipta 100-25 Mcg INH] Multivitamin [Daily Multiple 1 tab PO DAILY 11/22/18 04/05/19 Vitamin] Previous Rx's Medication Instructions Recorded Anastrozole [Arimidex] 1 mg PO DAILY #30 tablet 01/27/19 Calcium Carbonate/Vitamin D3 1 each PO DAILY #30 tablet 01/27/19 [Calcium 1,000 + D3 Caplet] Sulfamethoxazole/Trimeth DS 1 each PO BID #14 tablet 04/06/19 [Bactrim DS] Allergies Allergy/AdvReac Type Severity Reaction Status Date / Time azithromycin AdvReac Swelling Verified 04/02/19 19:47 of Lip/Tongue/Throat bacitracin AdvReac Itching Verified 04/02/19 19:47 ciprofloxacin [From Cipro] AdvReac Swelling Verified 04/02/19 19:47 of Lip/Tongue/Throat levofloxacin [From Levaquin] AdvReac Swelling Verified 04/02/19 19:47 of Lip/Tongue/Throat oxytetracycline AdvReac Swelling Verified 04/02/19 19:47 [From Terramycin] of Lip/Tongue/Throat Penicillins AdvReac Swelling Verified 04/02/19 19:47 of Lip/Tongue/Throat All systems ED: reviewed and negative except as stated. Review of Systems: As Per HPI Constitutional: Denies: fever, chills, weakness Cardiovascular: Denies: chest pain, palpitations, dyspnea on exertion, syncope Respiratory: Denies: cough, dyspnea, wheezes Gastrointestinal: Denies: abdominal pain, nausea, vomiting Integumentary: Denies: rash, lesions, pruritus Neurological: Denies: headache, weakness, numbness, paresthesias Hematological/Lymphatic: Denies: easy bleeding, easy bruising, lymphadenopathy Past Medical History - Past Medical History Attestation: Yes The following information was validated with the patient. Source: patient Medical history: Reports: arthritis, asthma, GERD, migraine, other Surgical history: Reports: non-contributory, hysterectomy Psychiatric history: Reports: no psych history - Social History Smoking Status: Never smoker Smokeless Tobacco Status: No Alcohol use: Reports: none Drug use: Reports: none Physical Exam - General Limitations: no limitations General appearance: alert, in no apparent distress - Head Head exam: atraumatic, normocephalic, normal inspection - Eye Eye exam: Present: normal appearance. Absent: scleral icterus, conjunctival injection, periorbital swelling - ENT ENT exam: mucous membranes moist - Neck Neck exam: Present: normal inspection, trachea midline. Absent: tenderness, meningismus - Chest Chest inspection: Present: other (left anterior breast and chest wall are mildly erythematous/ hyperpigmented - appears consistent with post radiation changes. Lateral breast has a cellulitic area- 7cm x 4cm oval shaped - with increased warmth and mild tenderness. No fluid collection in this area. ) - Expanded Chest Exam Breast: erythema: right (moderate tail - with increased warmth), swelling: right (mild), tenderness: right (mild, lateral - tail) - Respiratory Respiratory exam: Present: normal lung sounds bilaterally. Absent: respiratory distress - Cardiovascular Cardiovascular exam: Present: regular rate, normal rhythm - Extremities Exam Extremities exam: Present: normal inspection. Absent: pedal edema - Back Exam Back exam: Present: normal inspection - Neurological Exam Neurological exam: Present: alert, oriented X3, CN II-XII intact, normal gait - Psychiatric Psychiatric exam: Present: normal affect, normal mood - Skin Skin exam: Present: warm, dry, intact, normal color, erythema (described above) Course Course Narrative: Patient had a fluid collection in the right breast in the site where she had a lumpectomy done a few months ago. This fluid collection was drained a few days ago on the floor when the patient was admitted. It was found to be a seroma so no antibiotics were prescribed. Patient returns today with what she describes as another fluid collection and a new red area. She does have cellulitis and lateral aspect of the right breast and an indurated area on the anterior aspect. She is afebrile and has no other complaints; specifically, no fever, chills, malaise, nausea or vomiting. Surgery was consulted. Patient to be admitted - Consultations Consultation #1: Case discussed with Dr. Casandra hicks. She requests that an ultrasound be done and then she will see the patient. Time: 14:17 Consultation #2: Consult placed to Dr. Arenas significant as the result of ultrasound are now back. She has reviewed them and requests that the patient be admitted to her service. We discussed antibiotics. Given the patient's multiple allergies. She agrees with the Rocephin and requests that vancomycin be added. Time: 16:50 Vital Signs Temperature 98.2 F 04/05/19 12:32 Pulse Rate 85 04/05/19 12:32 Respiratory Rate 18 04/05/19 12:32 Blood Pressure 135/82 04/05/19 12:32 O2 Sat by Pulse Oximetry 96 04/05/19 12:32 Temperature 98.3 F 04/06/19 06:39 Pulse Rate 87 04/06/19 06:39 Respiratory Rate 15 04/06/19 06:39 Blood Pressure 142/83 04/06/19 06:39 O2 Sat by Pulse Oximetry 95 04/06/19 06:39 Oxygen Delivery Oxygen Delivery Room Air
[2019-04-05] MEDS ORDERED: Sulfamethoxazole/Trimeth DS 1 EACH TABLET PO ONE (14:26)
[2019-04-05] MEDS ORDERED: CefTRIAXone 1,000 MG VIAL IM ONE (14:26)
[2019-04-05] MEDS ORDERED: Cholecalciferol (D-3) 1,000 UNIT (25MCG) TABLET PO SCH (22:15)
[2019-04-05] MEDS: Anastrozole 1 MG TABLET PO SCH (22:32)
[2019-04-05] MEDS ORDERED: SUMAtriptan succinate 50 MG TABLET PO PRN (23:13)
[2019-04-06 06:46] VITALS: BP 142/83
[2019-04-06] MEDS: Anastrozole 1 MG TABLET PO SCH (08:18)
--- NOTE | 2019-04-06 08:19 | Acute Care Surgery H&P ---
Date of Encounter: 04/06/19 Time of Encounter: 07:00 Assessment and Plan (1) Abscess of right breast Current Visit: No Status: Suspected Concerns for recurrent seroma right breast developing abscess. Skin is cellulitic and collection is complex on US. However, case discussed with IR and the radiologist feels that the fluid collection in the right breast is not purulent. Pt has responded well to IV abx. Will continue abx PO at home and have pt follow-up with Dr. Barak mata. Outpt US guided aspiration of breast seroma recommended if total resolution of symptoms not achieved with abx. (2) Cellulitis of right breast Current Visit: Yes Status: Acute Not associated with abscess. Responding well to abx. (3) Ductal carcinoma in situ (DCIS) of right breast Current Visit: No Status: Chronic s/p lumpectomy with SLNB 11/22 History of Present Illness Chief complaint: right breast pain HPI: Ms. Kaufman is a 63 year old female who presents to [facility] ED complaining of right breast redness, swelling and pain. She reports that she noticed a new area of redness and swelling on lateral chest wall. She reports an aspiration of right breast seroma 3 days ago. She states the fluid was clear so no culture needed and no abx prescribed. Pt on abx IV overnight and already notices an improvement in right breast swelling, redness and pain. Denies nipple DC. Denies fevers. Past Med Surg Social Fam HX - Past Medical History Medical history: arthritis, asthma, GERD, migraine, other Additional medical history: RT BREAST CANCER, Psychiatric history: no psych history - Past Surgical History Surgical History: non-contributory, hysterectomy Additional surgical history: RT BREAST LUMPECTOMY, RT ANKLE SURG, - Social History Smoking Status: Never smoker Smokeless Tobacco Status: No Alcohol use: none Drug use: none - Family History Mother Living Status: Father Living Status: Medications and Allergies Cetirizine HCl [Zyrtec] 5 mg PO DAILY 06/21/18 [History] Cyclobenzaprine HCl 10 mg PO TID PRN 06/21/18 [History] EPINEPHrine [Epipen] 1 pack SQ PRN PRN 06/21/18 [History] Fluticasone Propionate Nasal [Flonase] 50 mcg NS BID 06/21/18 [History] hydroCHLOROthiazide [Hydrochlorothiazide] 25 mg PO DAILY 06/21/18 [History] Montelukast [Singulair] 10 mg PO HS 11/04/18 [History] SUMAtriptan Succinate [Imitrex] 6 mg SQ PRN PRN 11/04/18 [History] SUMAtriptan Succinate [Imitrex] 100 mg PO PRN PRN 11/04/18 [History] Fluticasone/Vilanterol [Breo Ellipta 100-25 Mcg INH] 1 puff PO DAILY 11/22/18 [History] Multivitamin [Daily Multiple Vitamin] 1 tab PO DAILY 11/22/18 [History] Anastrozole [Arimidex] 1 mg PO DAILY #30 tablet 01/27/19 [Rx] Calcium Carbonate/Vitamin D3 [Calcium 1,000 + D3 Caplet] 1 each PO DAILY #30 tablet 01/27/19 [Rx] Allergy/AdvReac Type Severity Reaction Status Date / Time azithromycin AdvReac Swelling Verified 04/02/19 19:47 of Lip/Tongue/Throat bacitracin AdvReac Itching Verified 04/02/19 19:47 ciprofloxacin [From Cipro] AdvReac Swelling Verified 04/02/19 19:47 of Lip/Tongue/Throat levofloxacin [From Levaquin] AdvReac Swelling Verified 04/02/19 19:47 of Lip/Tongue/Throat oxytetracycline AdvReac Swelling Verified 04/02/19 19:47 [From Terramycin] of Lip/Tongue/Throat Penicillins AdvReac Swelling Verified 04/02/19 19:47 of Lip/Tongue/Throat Review of Systems All systems PM: The remainder of the systems were reviewed and are negative - Constitutional no anorexia, no chills, no fatigue, no fever(s), no night sweats, no weakness - EENT Nose, mouth and throat: no dry mouth, no dysphagia, no nasal congestion, no nasal discharge, no sinus pain, no sinus pressure, no sore throat - Breasts right: change in shape (post-op), pain, skin changes, swelling as per HPI, pain, skin changes, swelling, other (redness), no nipple discharge - Cardiovascular chest pain (lateral right ribs where the redness is), no diaphoresis, no dyspnea, no edema - Respiratory no cough, no dyspnea, no wheezing - Gastrointestinal no abdominal pain, no constipation, no diarrhea, no heartburn, no nausea, no vomiting - Genitourinary Genitourinary: no dysuria, no flank pain, no urinary frequency - Musculoskeletal no back pain, no joint swelling, no limited range of motion, no neck pain - Integumentary no dry skin, no pruritus, no rash, no wounds, no jaundice - Neurological no dizziness, no focal weakness, no weakness - Psychiatric no anxiety, no depression - Endocrine no fatigue - Hematologic/Lymphatic no easy bleeding, no easy bruising General Surgery Exam Initial Vital Signs Temp Pulse Resp BP Pulse Ox 98.2 F 85 18 135/82 96 04/05/19 12:32 04/05/19 12:32 04/05/19 12:32 04/05/19 12:32 04/05/19 12:32 - General physical appearance well nourished, no distress. negative: jaundice - Eyes PERRL, normal ocular movement. negative: icteric - ENT normal mucosa, no congestion. negative: nasal discharge - Neck no masses, trachea midline, no lymphadectomy, no venous distension - Respiratory normal respiratory effort, clear to auscultation - Cardiovascular Cardiovascular exam: Present: RRR, JVD - Abdomen Abdomen general surgery: Present: bowel sounds present, soft, non tender. Absent: distended - Genitourinary Present: normal external genitalia - Integumentary Integumentary general surgery: Present: other (right breast with post-op changes. +erythema over lateral aspect of chest wall without any fluctuance, mass or drainage. Left breast with vague ecchymosis from previous aspiration and no erythema or cellultitis.) - Neurologic Present: CN 2-12 grossly intact, normal coordination - Musculoskeletal Present: normal posture - Psychiatric Psychiatric general surgery: Present: A&Ox3, appropriate Results - Labs Abnormal lab results POC Glucose 213 mg/dL (70-99) H 04/05/19 19:06 All other labs normal. - Imaging Additional studies: right breast US reveals complex fluid collection
[2019-04-06] MEDS ORDERED: hydroCHLOROthiazide 25 MG TABLET PO SCH (09:00)
[2019-04-06] MEDS ORDERED: Multivit/Ca/Min/Fe/FA 1 TAB TABLET PO SCH (09:00)
[2019-04-06] MEDS ORDERED: Loratadine 10 MG TABLET PO SCH (09:00)
[2019-04-06] MEDS ORDERED: cefTRIAXone 1,000 MG in Water for inj. (sterile) 10 ML IVPB SCH (09:00)
[2019-04-06] MEDS ORDERED: Fluticasone Propionate Nasal 50 MCG/SPRAY BOTTLE NS SCH (09:00)
--- NOTE | 2019-04-06 09:58 | Discharge Summary ---
Date of Encounter: 04/06/19 Time of Encounter: 10:00 - Discharge Diagnosis (1) Cellulitis of right breast Priority: Primary Status: Acute Comments: Continue abx. Change to Bactrim PO. (2) Abscess of right breast Priority: Primary Status: Suspected Comments: Concerns for recurrent seroma right breast developing abscess. Skin is ce llulitic and collection is complex on US. However, case discussed with IR and the radiologist feels that the fluid collection in the right breast is not purulent. Pt has responded well to IV abx. Will continue abx PO at home and have pt follow-up with Dr. Barak mata. Outpt US guided aspiration of breast seroma recommended if total resolution of symptoms not achieved with abx. (3) Ductal carcinoma in situ (DCIS) of right breast Priority: Secondary Status: Chronic Comments: s/p lumpectomy and SLNB in November 2018. General Surgery Exam Initial Vital Signs Temp Pulse Resp BP Pulse Ox 98.2 F 85 18 135/82 96 04/05/19 12:32 04/05/19 12:32 04/05/19 12:32 04/05/19 12:32 04/05/19 12:32 - General physical appearance well developed, well nourished, no distress - Eyes PERRL, normal ocular movement - ENT normal mucosa, no congestion - Neck trachea midline, no venous distension - Respiratory normal respiratory effort, clear to auscultation - Cardiovascular Cardiovascular exam: Present: RRR. Absent: JVD - Abdomen Abdomen general surgery: Present: bowel sounds present, soft, non tender - Integumentary Integumentary general surgery: Present: other (right breast cellulitis) - Neurologic Present: CN 2-12 grossly intact, normal coordination - Musculoskeletal Present: normal posture - Psychiatric Psychiatric general surgery: Present: A&Ox3, appropriate - Hospital Course Hospital course: Ms. Kaufman is a 63 year old female - Time Spent with Patient Total time spent providing and/or coordinating discharge services: Greater than 30 minutes - Discharge Medications Prescriptions: New Sulfamethoxazole/Trimeth DS [Bactrim DS] 1 each PO BID #14 tablet Continued Fluticasone Propionate Nasal [Flonase] 50 mcg NS BID Cetirizine HCl [Zyrtec] 5 mg PO DAILY hydroCHLOROthiazide [Hydrochlorothiazide] 25 mg PO DAILY Cyclobenzaprine HCl 10 mg PO TID PRN PRN Reason: Muscle Spasm EPINEPHrine [Epipen] 1 pack SQ PRN PRN PRN Reason: Anaphylaxis SUMAtriptan Succinate [Imitrex] 6 mg SQ PRN PRN PRN Reason: Migraine Headache Montelukast [Singulair] 10 mg PO HS SUMAtriptan Succinate [Imitrex] 100 mg PO PRN PRN PRN Reason: Migraine Headache Fluticasone/Vilanterol [Breo Ellipta 100-25 Mcg INH] 1 puff PO DAILY Multivitamin [Daily Multiple Vitamin] 1 tab PO DAILY Calcium Carbonate/Vitamin D3 [Calcium 1,000 + D3 Caplet] 1 each PO DAILY #30 tablet Anastrozole [Arimidex] 1 mg PO DAILY #30 tablet Home Medications: Cetirizine HCl [Zyrtec] 5 mg PO DAILY 06/21/18 [History] Cyclobenzaprine HCl 10 mg PO TID PRN 06/21/18 [History] EPINEPHrine [Epipen] 1 pack SQ PRN PRN 06/21/18 [History] Fluticasone Propionate Nasal [Flonase] 50 mcg NS BID 06/21/18 [History] hydroCHLOROthiazide [Hydrochlorothiazide] 25 mg PO DAILY 06/21/18 [History] Montelukast [Singulair] 10 mg PO HS 11/04/18 [History] SUMAtriptan Succinate [Imitrex] 6 mg SQ PRN PRN 11/04/18 [History] SUMAtriptan Succinate [Imitrex] 100 mg PO PRN PRN 11/04/18 [History] Fluticasone/Vilanterol [Breo Ellipta 100-25 Mcg INH] 1 puff PO DAILY 11/22/18 [History] Multivitamin [Daily Multiple Vitamin] 1 tab PO DAILY 11/22/18 [History] Anastrozole [Arimidex] 1 mg PO DAILY #30 tablet 01/27/19 [Rx] Calcium Carbonate/Vitamin D3 [Calcium 1,000 + D3 Caplet] 1 each PO DAILY #30 tablet 01/27/19 [Rx] Sulfamethoxazole/Trimeth DS [Bactrim DS] 1 each PO BID #14 tablet 04/06/19 [Rx] Allergies/Adverse Reactions: Allergy/AdvReac Type Severity Reaction Status Date / Time azithromycin AdvReac Swelling Verified 04/02/19 19:47 of Lip/Tongue/Throat bacitracin AdvReac Itching Verified 04/02/19 19:47 ciprofloxacin [From Cipro] AdvReac Swelling Verified 04/02/19 19:47 of Lip/Tongue/Throat levofloxacin [From Levaquin] AdvReac Swelling Verified 04/02/19 19:47 of Lip/Tongue/Throat oxytetracycline AdvReac Swelling Verified 04/02/19 19:47 [From Terramycin] of Lip/Tongue/Throat Penicillins AdvReac Swelling Verified 04/02/19 19:47 of Lip/Tongue/Throat Date of admission: 04/05/19 17:49 Primary care physician: Benito Connor Labs on day of discharge: Labs from last 24 hours 04/05/19 19:06 POC Glucose 213 H - Impressions ITS Impressions Breast Ultrasound 04/05/19 14:26 IMPRESSION: 1. Redevelopment of complex fluid collection in the right breast 2 o'clock axis measuring about 3.6 x 3.6 x 2.5 cm, compatible with seroma or less likely abscess. 2. Targeted ultrasound of the lateral breast in the 9-10 o'clock axis demonstrates skin thickening compatible with cellulitis, but no fluid collection in this area. BIRADS: BIRADS - CATEGORY 3 Findings are probably benign. A short interval follow-up is recommended in 1 month. OVERALL ASSESSMENT - PROBABLY BENIGN. A letter of notification will be sent to the patient regarding the results. D/ / 04/05/2019 15:47:30 Khushi Goncalves MD / [employer]old Interpreting Provider: Khushi Goncalves MD - Patient Status Disposition: Home, Self-Care Functional capacity at discharge: independent ambulation Overall status at discharge: patient is progressing back to baseline - Discharge Instructions Follow Up With: Benito Connor DO [Primary Care Provider] - Tom Cancino MD [Non-Partnered Physician] - Additional Instructions: Please, call [facility] for follow-up appointment with Dr. Cancino. Call [phone] for appointment as soon as possible. - Diet and Activity Activity: other (no physical restrictions) Diet: advance to your usual diet
[2019-04-06] MEDS ORDERED: Aminoglycoside Consult 1 EACH MC ONE (10:57)
== END 2019-04-06 10:58 | disposition home or self-care (01) ==
LOC: 3BNU 12:30 → EMEROOARM 12:30 → 3BNU 18:59
PROVIDERS: ADMIT Internal Medicine; ATTEND Surgery

== ENCOUNTER 2021-01-18 23:30 | Inpatient (IN) ==
[2021-01-19 01:04] LABS: Basophils % 0.2 %; Hematocrit 43.7 % (35.3-44.9); Hemoglobin 14.8 g/dL (11.5-15.4); Immature Granulocytes % 0.6 % (0-4); Lymphocytes # 0.3 K/mcL (0.6-4.6); Lymphocytes % 3.3 %; Mean Corpuscular HGB Conc 33.9 g/dL (31.6-35.5); Mean Corpuscular Hemoglobin 30.5 pg (28.0-33.3); Mean Corpuscular Volume 90.1 fL (83.0-100.0); Mean Platelet Volume 9.1 fL (9.4-12.4); Monocytes # 0.4 K/mcL (0.0-1.3); Monocytes % 4.4 %; Neutrophils # 8.3 K/mcL (1.6-8.9); Platelet Count 202 K/mcL (140-400); Red Blood Count 4.85 M/mcL (3.82-4.97); Segmented Neutrophils % 91.5 %; White Blood Count 9.1 K/mcL (4.3-11.1)
[2021-01-19 01:14] LABS: Alanine Aminotransferase 38 Units/L (7-52); Albumin 3.9 g/dL (3.5-5.7); Albumin/Globulin Ratio 1.1 (1.1-2.2); Alkaline Phosphatase 72 Units/L (34-104); Aspartate Amino Transferase 39 Units/L (13-39); BUN/Creatinine Ratio 20 (6-26); Bilirubin,Direct 0.2 mg/dL (0.0-0.2); Bilirubin,Indirect 0.6 mg/dL (0.0-1.0); Bilirubin,Total 0.8 mg/dL (0.3-1.0); Blood Urea Nitrogen 19 mg/dL (8-23); Calcium 8.6 mg/dL (8.6-10.3); Carbon Dioxide 22 mEq/L (23-29); Chloride 93 mEq/L (98-107); Globulin 3.4 g/dL (2.4-3.5); Glucose 208 mg/dL (70-105); Lipase 29 Units/L (11-82); Magnesium 2.1 mg/dL (1.6-2.6); Osmolality,Calculated 276 (280-300); Potassium 3.1 mEq/L (3.5-5.1); Sodium 129 mEq/L (136-145); Total Protein 7.3 g/dL (6.4-8.9); eGFR For African Americans > 60 (> 60); eGFR For Non-African Americans > 60 (> 60)
[2021-01-19 01:50] LABS: VBG HCO3 23 mEq/L (21-27); VBG PCO2 32 mmHg (41-51); VBG PH 7.46 pH Units (7.32-7.42); VBG PO2 100 mmHg (25-50)
[2021-01-19 02:33] LABS: Adenovirus Not Detected (Not Detect); Coronavirus 229E Not Detected (Not Detect); Coronavirus HKU1 Not Detected (Not Detect); Coronavirus NL63 Not Detected (Not Detect); Coronavirus OC43 Not Detected (Not Detect)
[2021-01-19 02:34] LABS: Bordetella Pertussis Not Detected (Not Detect); Chlamydophila pneumoniae Not Detected (Not Detect); Human Metapneumovirus Not Detected (Not Detect); Human Rhinovirus/Enterovirus Not Detected (Not Detect); Influenza A Subtype 2009 H1 Not Detected (Not Detect); Influenza B Not Detected (Not Detect); Mycoplasma pneumoniae Not Detected (Not Detect); Parainfluenza Virus 1 Not Detected (Not Detect); Parainfluenza Virus 2 Not Detected (Not Detect); Parainfluenza Virus 3 Not Detected (Not Detect); Parainfluenza Virus 4 Not Detected (Not Detect); Respiratory Syncytial Virus Not Detected (Not Detect); SARS-CoV-2 Not Detected (Not Detect)
[2021-01-19 03:01] LABS: Bacteria,Urine Few per hpf (None-Few); Bilirubin,Urine Negative (Negative); Blood,Urine Negative (Negative); Clarity,Urine Turbid (Clear); Color,Urine Yellow (Yellow); Glucose,Urine (UA) Normal (Normal); Ketones,Urine 20 mg/dL (Negative); Leukocyte Esterase,Urine Moderate (Negative); Mucus,Urine Few per lpf (None-Few); Nitrite,Urine Negative (Negative); PH,Urine 6.5 pH Units (5.0-8.0); Protein,Urine Trace mg/dL (Neg-Trace); RBC,Urine 0-3 per hpf (0-3); Specific Gravity,Urine 1.015 (1.010-1.025); Squamous Epithelial Cell,Urine Few per hpf (None-Few); Transitional Epi Cells,Urine Few per hpf (None-Few); Urobilinogen,Urine Normal (Normal); WBC,Urine 15-30 per hpf (0-3)
[2021-01-19] MEDS ORDERED: 0.9 % Sodium Chloride 1,000 ML IVC ONE (03:18)
[2021-01-19] MEDS ORDERED: cefTRIAXone 1,000 MG in 0.9 % Sodium Chloride Mini Bag 100 ML IVPB ONE (03:24)
[2021-01-19] MEDS ORDERED: Naloxone 0.4 MG/ML INJ IVP PRN (05:35)
[2021-01-19] MEDS ORDERED: Ondansetron 4 MG/2 ML VIAL IVP PRN (05:35)
[2021-01-19] MEDS ORDERED: *HR* Dextrose 50 % in Water (Vial) 50 ML VIAL IVP PRN (05:42)
[2021-01-19] MEDS ORDERED: D5% in Water 1,000 ML IVC PRN (05:42)
[2021-01-19] MEDS ORDERED: Dextrose Gel 15 GM/37.5 ML TUBE PO PRN ×2 (05:42)
[2021-01-19] MEDS: 0.9 % Sodium Chloride 1,000 ML IVC SCH ×2 (06:32→20:29)
[2021-01-19] MEDS ORDERED: *HR* Enoxaparin 30 MG/0.3 ML SYRINGE SQ SCH (09:00)
[2021-01-19 09:01] LABS: Estimated Average Glucose 154 mg/dl
[2021-01-19] MEDS ORDERED: Acetaminophen 325 MG TABLET PO PRN (09:56)
[2021-01-19] MEDS: Insulin LISPRO 300 UNITS/3 ML VIAL SUBQ SCH ×4 (10:15→19:51)
[2021-01-19 12:30] LABS: BUN/Creatinine Ratio 18 (6-26); Blood Urea Nitrogen 16 mg/dL (8-23); Calcium 8.3 mg/dL (8.6-10.3); Carbon Dioxide 24 mEq/L (23-29); Chloride 99 mEq/L (98-107); Glucose 136 mg/dL (70-105); Osmolality,Calculated 279 (280-300); Potassium 3.5 mEq/L (3.5-5.1); Sodium 133 mEq/L (136-145); eGFR For African Americans > 60 (> 60); eGFR For Non-African Americans > 60 (> 60)
[2021-01-19] MEDS: cefTRIAXone 1,000 MG in Water for inj. (sterile) 10 ML IVP SCH (20:28)
[2021-01-20] MEDS ORDERED: *HR* Enoxaparin 40 MG/0.4 ML SYRINGE SQ SCH (06:00)
[2021-01-20 06:12] LABS: Basophils % 0.6 %; Eosinophils % 0.6 %; Hematocrit 37.9 % (35.3-44.9); Hemoglobin 12.8 g/dL (11.5-15.4); Immature Granulocytes % 0.4 % (0-4); Lymphocytes # 0.8 K/mcL (0.6-4.6); Lymphocytes % 14.8 %; Mean Corpuscular HGB Conc 33.8 g/dL (31.6-35.5); Mean Corpuscular Hemoglobin 30.4 pg (28.0-33.3); Monocytes # 0.6 K/mcL (0.0-1.3); Neutrophils # 3.8 K/mcL (1.6-8.9); Platelet Count 206 K/mcL (140-400); Red Blood Count 4.21 M/mcL (3.82-4.97); Red Cell Distribution Width 12.1 % (11.5-14.5); Segmented Neutrophils % 72.6 %; White Blood Count 5.3 K/mcL (4.3-11.1)
[2021-01-20] MEDS: Budesonide/Formoterol 80/4.5 1 PUFF INH IH SCH ×2 (07:22→20:02)
[2021-01-20] MEDS: Insulin LISPRO 300 UNITS/3 ML VIAL SUBQ SCH ×4 (07:45→20:06)
[2021-01-20 08:00] LABS: BUN/Creatinine Ratio 21 (6-26); Blood Urea Nitrogen 16 mg/dL (8-23); Calcium 8.1 mg/dL (8.6-10.3); Carbon Dioxide 24 mEq/L (23-29); Chloride 108 mEq/L (98-107); Glucose 121 mg/dL (70-105); Magnesium 2.2 mg/dL (1.6-2.6); Osmolality,Calculated 286 (280-300); Potassium 3.1 mEq/L (3.5-5.1); Sodium 137 mEq/L (136-145); Thyroid Stimulating Hormone 1.461 mcIU/mL (0.340-5.600); eGFR For African Americans > 60 (> 60); eGFR For Non-African Americans > 60 (> 60)
[2021-01-20] MEDS: Loratadine 10 MG TABLET PO SCH (11:25)
[2021-01-20] MEDS: cefTRIAXone 1,000 MG in Water for inj. (sterile) 10 ML IVP SCH (20:05)
[2021-01-21 05:34] LABS: Hematocrit 38.5 % (35.3-44.9); Hemoglobin 12.7 g/dL (11.5-15.4); Mean Corpuscular Hemoglobin 29.7 pg (28.0-33.3); Mean Platelet Volume 8.8 fL (9.4-12.4); Platelet Count 244 K/mcL (140-400); Red Blood Count 4.28 M/mcL (3.82-4.97); Red Cell Distribution Width 12.4 % (11.5-14.5); White Blood Count 3.9 K/mcL (4.3-11.1)
[2021-01-21 05:55] LABS: BUN/Creatinine Ratio 23 (6-26); Blood Urea Nitrogen 16 mg/dL (8-23); Calcium 8.3 mg/dL (8.6-10.3); Carbon Dioxide 19 mEq/L (23-29); Chloride 115 mEq/L (98-107); Glucose 131 mg/dL (70-105); Osmolality,Calculated 295 (280-300); Potassium 3.7 mEq/L (3.5-5.1); Sodium 141 mEq/L (136-145); eGFR For African Americans > 60 (> 60); eGFR For Non-African Americans > 60 (> 60)
[2021-01-21] MEDS: Insulin LISPRO 300 UNITS/3 ML VIAL SUBQ SCH ×4 (07:15→21:30)
[2021-01-21] MEDS: Budesonide/Formoterol 80/4.5 1 PUFF INH IH SCH ×2 (07:46→20:17)
[2021-01-21] MEDS: Loratadine 10 MG TABLET PO SCH (08:28)
[2021-01-21 12:34] LABS: BUN/Creatinine Ratio 18 (6-26); Blood Urea Nitrogen 14 mg/dL (8-23); Calcium 8.4 mg/dL (8.6-10.3); Carbon Dioxide 22 mEq/L (23-29); Chloride 111 mEq/L (98-107); Glucose 96 mg/dL (70-105); Osmolality,Calculated 292 (280-300); Potassium 3.3 mEq/L (3.5-5.1); Sodium 141 mEq/L (136-145); eGFR For African Americans > 60 (> 60); eGFR For Non-African Americans > 60 (> 60)
[2021-01-21] MEDS: cefTRIAXone 1,000 MG in Water for inj. (sterile) 10 ML IVP SCH (22:23)
[2021-01-22 03:20] LABS: Hematocrit 36.3 % (35.3-44.9); Hemoglobin 12.2 g/dL (11.5-15.4); Mean Corpuscular HGB Conc 33.6 g/dL (31.6-35.5); Mean Corpuscular Hemoglobin 30.6 pg (28.0-33.3); Platelet Count 283 K/mcL (140-400); Red Blood Count 3.99 M/mcL (3.82-4.97); Red Cell Distribution Width 12.5 % (11.5-14.5)
[2021-01-22 03:23] LABS: White Blood Count 5.9 K/mcL (4.3-11.1)
[2021-01-22 03:42] LABS: BUN/Creatinine Ratio 23 (6-26); Blood Urea Nitrogen 18 mg/dL (8-23); Calcium 8.2 mg/dL (8.6-10.3); Carbon Dioxide 22 mEq/L (23-29); Chloride 111 mEq/L (98-107); Glucose 128 mg/dL (70-105); Osmolality,Calculated 296 (280-300); Potassium 3.8 mEq/L (3.5-5.1); Sodium 141 mEq/L (136-145); eGFR For African Americans > 60 (> 60); eGFR For Non-African Americans > 60 (> 60)
[2021-01-22] MEDS: Budesonide/Formoterol 80/4.5 1 PUFF INH IH SCH (08:01)
[2021-01-22] MEDS: Insulin LISPRO 300 UNITS/3 ML VIAL SUBQ SCH ×2 (08:24→11:35)
[2021-01-22] MEDS: Loratadine 10 MG TABLET PO SCH (08:36)
[2021-01-22 11:14] VITALS: BP 138/81
== END 2021-01-22 12:19 | disposition home or self-care (01) | DRG 690 ==
LOC: 3BNU 23:30 → EMEROOARM 23:30 → SUATTDRO 01-19 04:27 → 3BNU 01-19 05:37 → SUATTDRO 01-20 15:28
PROVIDERS: ADMIT Student in an Organized Health Care Education/Training Program; ATTEND Registered Nurse